=== PATIENT | male | born 1950 | race Caucasian/White ===

== ENCOUNTER 2016-09-21 14:09 | Inpatient (IN) | payer MEDICARE, MEDICAID ==
--- NOTE | 2016-09-21 14:40 | ED Physician Chart ---
Chief Complaint/HPI - Patient Information Date Seen:: 09/21/16 Time Seen:: 14:23 Chief Complaint:: AGITATED History of Present Illness:: THIS IS A 66 YO MALE CORRECTION PATIENT WITH SOME DIFFICULTY WITH HIS BEHAVIOR , STRIKING OUT AT THE STAFF. HE IS HERE FOR EVALUATION AND TREATMENT OF HIS PSYCHOSIS. HE IS A STROKE PATIENT WITH LEFT UPPER EXTREMITY SPASTIC PARALYSIS WITH DIFFICULTY WITH SPEECH AND THOUGH PROCESS. HE IS A DNR WITH DEMENTIA. Allergies:: Allergies Allergy/AdvReac Type Severity Reaction Status Date / Time ibuprofen Allergy Verified 09/21/16 14:19 Penicillins [PCN] Allergy Verified 09/21/16 14:18 Vitals:: Vital Signs - 8 hr 09/21/16 14:19 Temp 98.8 F HR 85 RR 16 BP 116/75 O2 Sat % 96 Review:: Nurse's Note Reviewed Review of Systems - Review of Systems General/Constitutional: No fever, No chills, No weight loss, No weakness, No diaphoresis, No edema, No loss of appetite, Other (THIS PATIENT IS UNABLE TO GIVE A REVIEW OF SYSTEMS.) Skin: No skin lesions, No rash, No bruising Head: No headache, No light-headedness Eyes: No loss of vision, No pain, No diplopia ENT: No earache, No nasal drainage, No sore throat, No tinnitus Neck: No neck pain, No swelling, No thyromegaly, No stiffness, No mass noted Cardio Vascular: No chest pain, No palpitations, No PND, No orthopnea, No edema Pulmonary: No SOB, No cough, No sputum, No wheezing GI: No nausea, No vomiting, No diarrhea, No pain, No melena, No hematochezia, No constipation, No hematemesis G/U: No dysuria, No frequency, No hematuria Musculoskeletal: No bone or joint pain, No back pain, No muscle pain Endocrine: No polyuria, No polydipsia Psychiatric: No prior psych history, No depression, No anxiety, No suicidal ideation Hematopoietic: No bruising, No lymphadenopathy Allergic/Immuno: No urticaria, No angioedema Neurological: No syncope, No focal symptoms, No weakness, No paresthesia, No headache, No seizure, No dizziness, No confusion, No vertigo Past Medical History - Past Medical History Obtainable: Yes Past Medical History: CVA/TIA, PUD/GERD Family History: None Social History: Non Smoker, No Alcohol, No Drug Use, Care Facility Surgical History: None Psychiatricy History: Dementia Medication: Reviewed Family Medical History - Family Member Mother History Unknown: Yes Physical Exam - Physical Examination General/Constitutional: Awake (LEFT UPPER EXTREMITY SPASTIC PARALYSIS, WEAKNESS OF THE LOWER EXTREMITIES.), Well-developed, well-nourished, Alert, No distress, GCS 15 (HE ALSO HAD DIFFICULTY THINKING AND SPEAKING.), Non-toxic appearing, Ambulatory Head: Atraumatic Eyes: Lids, conjuctiva normal, PERRL, EOMI Skin: Nl inspection, No rash, No skin lesions, No ecchymosis, Well hydrated, No lymphadenopathy ENMT: External ears, nose nl, Nasal exam nl, Lips, teeth, gums nl Neck: Nontender, Full ROM w/o pain, No JVD, No nuchal rigidity, No bruit, No mass, No stridor Respiratory: Nl effort/Exclusion, Clear to Auscultation, No Wheeze/Rhonchi/Rales Cardio Vascular: RRR, No murmur, gallop, rubs, NL S1 S2 GI: No tenderness/rebounding/guarding, No organomegaly, No hernia, Normal BS's, Nondistended, No mass/bruits, No McBurney tenderness : No CVA tenderness Extremities: No tenderness or effusion, Full ROM, normal strength in all extremities, No edema, Normal digits & nails Neuro/Psych: Alert/oriented, DTR's symmetric, Normal sensory exam, Normal motor strength, Normal gait Other Neuro/Psych comments:: THERE IS LEFT UPPER EXTREMITY SPASTIC PARALYSIS AND RIGHT SIDED WEAKNESS. HE IS NOT ORIENTED TO PLACE AND SITUATION WITH POOR THINKING ABILITY. Misc: normal gait, Normal back, No paraspinal tenderness Labs/Radiology/EKG Results - EKG Interpretations EKG Time:: 14:29 Rate & Rhythm: 85 SINUS Cory: RIGHT Assessment - Assessment General Assessment: PSYCHOSIS ED Septic Shock - . Is Septic Shock (SBP<90, OR Lactate>4 mmol\L) present?: No - <6hrs of presentation: Vital Signs: Vital Signs - 8 hr 09/21/16 14:19 Temp 98.8 F HR 85 RR 16 BP 116/75 O2 Sat % 96 Reassessment (Disposition) - Reassessment Reassessment Condition:: Unchanged - Diagnosis Diagnosis:: AGITATION - Patient Disposition Discharge/Transfer:: Acute Care w/in this hosp Admitting Medical Physician:: Andrade Verma Admitting Psych Physician:: Tressa Norris Condition at Disposition:: Unchanged
[2016-09-21 14:46] LABS: % BASOPHILS 0.2 % (0.0-2.0); % EOSINOPHILS 1.5 % (0.0-5.0); % LYMPHOCYTES 34.9 % (20.0-50.0); % MONOCYTES 9.4 % (2.0-10.0); HEMATOCRIT 37.6 % (39.0-49.0); HEMOGLOBIN 13.1 gm/dL (13.2-17.3); MEAN CELL VOLUME 96.7 fl (80-99); MEAN CORPUSCULAR HEMOGLOBIN 33.8 pg (26.0-30.0); MEAN CORPUSCULAR HGB CONC 34.9 pg (28.0-36.0); MEAN PLATELET VOLUME 8.8 fl; NEUTROPHILE ABSOLUTE 4.8 Th/cmm (1.8-8.0); PLATELET COUNT 234 Th/cmm (150-400); RED BLOOD COUNT 3.88 Mil/cmm (4.30-5.70); RED CELL DISTRIBUTION WIDTH 14.5 % (11.5-20.0); WHITE BLOOD COUNT 8.8 Th/cmm (4.8-10.8)
--- NOTE | 2016-09-21 14:47 | Diagnostic Imaging Report ---
CHEST X-RAY: AP view INDICATION: Cough COMPARISON: None FINDINGS: Skinfolds are seen along the right hemithorax. Left basal subsegmental atelectasis versus scarring is noted. No focal consolidation or effusions. Heart size is normal. Degenerative changes of the spine are noted. IMPRESSION: Left basal subsegmental atelectasis versus scarring. No focal consolidation identified.
[2016-09-21 14:49] LABS: INR 1.02 (0.5-1.4); PROTHROMBIN TIME (TEST) 10.6 SECONDS (9.5-11.5)
[2016-09-21 14:53] LABS: CHOLESTEROL 152 mg/dL (<200); TRIGLYCERIDES 97 mg/dL (<150)
[2016-09-21 14:55] LABS: ALB/GLOB RATIO 1.2 (1.0-1.8); ALKALINE PHOSPHATASE 58 U/L (34-104); ANION GAP 9.1 (7.0-16.0); BILIRUBIN,TOTAL 0.5 mg/dL (0.3-1.0); BUN - UREA NITROGEN 20 mg/dL (7-25); BUN/CREATININE RATIO 22.2; CALCIUM SERUM 9.5 mg/dL (8.6-10.3); CARBON DIOXIDE 26.1 mEq/L (21.0-31.0); CHLORIDE 99 mEq/L (98-107); CREATININE - SERUM 0.9 mg/dL (0.7-1.3); GLUCOSE 120 mg/dL (70-105); POTASSIUM SERUM 4.2 mEq/L (3.5-5.1); SGOT 15 U/L (13-39); SGPT/ALT 15 U/L (7-52); SODIUM SERUM 130 mEq/L (136-145)
[2016-09-21 17:15] VITALS: BP 122/72
[2016-09-21 17:32] LABS: URINE BILIRUBIN NEGATIVE (NEGATIVE); URINE BLOOD TRACE (NEGATIVE); URINE COLOR YELLOW; URINE GLUCOSE (UA) NEGATIVE (NEGATIVE); URINE KETONE TRACE mg/dL (NEGATIVE); URINE PROTEIN NEGATIVE (NEGATIVE)
[2016-09-21 17:33] LABS: URINE BACTERIA OCCASIONAL /hpf (NONE SEEN); URINE EPITHELIAL CELLS OCCASIONAL /lpf (FEW); URINE WBC 0-2 /hpf (0-5)
[2016-09-21] MEDS ORDERED: Non-Formulary Item 1 EA (Acetaminophen [Pain Reliever] 1 TAB) PO PRN (18:36)
--- NOTE | 2016-09-21 21:53 | Psychosocial Evaluation ---
DATE OF SERVICE: IDENTIFYING DATA: The patient is a 66-year-old male, resident of a [facility].Information obtained by directly interviewing the patient as well as reviewing the admission papers. JUSTIFICATION FOR HOSPITALIZATION: The patient is admitted here on a voluntary basis in view of his agitated behavior. HISTORY OF PRESENT ILLNESS: Chart is reviewed. Staff was spoken to. The patient's has been spoken to who happened to be there by the bedside. The patient has been diagnosed with fixed dementia a couple of years ago and has been having difficult time. The patient's somehow was able to secure some funding for the patient, the patient has been placed at [facility]. The patient has reported to have been refusing to comply with the medications. The patient has been spitting the medications out when it was administered and also reported to have been trying to grab the staff. The patient has been very aggressive. The patient, on that basis, has been referred over here for stabilization. The patient's has been a good historian and has been mentioning that she has been struggling with the patient for the past couple of years. The patient's sleep and appetite prior to the hospitalization are reported to be poor. PAST PSYCHIATRIC HISTORY: None. MEDICAL HISTORY: As mentioned earlier, the patient has been diagnosed with fixed dementia and the patient also has a history of CVA affecting the left side and the patient also has esophageal reflux disease. The patient is requested to have physical examination done by Dr. Verma. SUBSTANCE ABUSE HISTORY: None. SOCIAL HISTORY: The patient has been for over 42 years, the patient has 2 children, one lives in [place], he is a , the other one in [place] and the patient used to be senior windows systems administrator and the patient's is supportive. PHYSICAL OR SEXUAL ABUSE HISTORY: None. LEGAL PROBLEMS: None at this time. STRENGTH AND ASSETS: The patient is motivated. MENTAL STATUS EXAMINATION: The patient is a 66-year-old well-built with the left-sided hemiplegia. Coping skills are noted to be very poor. Speech is noted to be incoherent. The patient has been mumbling, but the patient is not able to articulate. Insight and judgment are noted to be very much impaired. Impulse control is noted to be poor. The patient is reported to have been very aggressive. The patient's behavior is a danger to others. The patient's short and long-term are noted to be very much impaired. DIAGNOSTIC IMPRESSION: AXIS I: Dementia and behavioral changes, secondary trait, particularly the fixed disease. AXIS II: None. AXIS III: As per Dr. Verma. IMMEDIATE TREATMENT PLAN: The patient is going to be continued on the Depakote and the patient is going to be looked into a low dose of the Seroquel. Estimated length of stay, 5-7 days. DISCHARGE CRITERIA: When he no longer a threat to self or others and be able to cope up with the stress. [facility]# [id number] MTDD
[2016-09-22] MEDS: Pantoprazole 40 mg EC Tab PO SCH (06:42)
[2016-09-22] MEDS ORDERED: Non-Formulary Item 1 EA (Melatonin [Melatonin] 3 MG) PO SCH (21:00)
--- NOTE | 2016-09-22 21:45 | Admit Criteria Form ---
Admit Criteria Forms - Admit Criteria Diagnosis: PSYCHIATRIC DISORDERS (Place 'X' for any and all applicable criteria): Ongoing inpatient care may be needed for 1 or more of the following(1)(2)(3)(4)( 6)(7)(8): [ ]I. Danger to self or others not manageable at lower level of care. [ ]II. Grave disability (eg, inability to perform self care necessary at lower level of care) [X ]III. Agitation or inappropriate behavior interfering with care for primary condition (eg, attempting to discontinue lines or drains prematurely, unable to cooperate with respiratory care) [ ]IV. Severe disability or disorder indicated by ALL of the following: [ ]a) Severe behavioral health disorder-related symptoms or condition indicated by 1 or more of the following: [ ]i) Severe problem with cognition, memory, judgment, or impulse control [ ]ii) Severe clinical manifestations (eg, hallucinations, delusions, other acute psychotic symptoms, kristina, extreme agitation or anxiety) [ ]b) Patient management at lower level of care is not feasible until acute intervention or modification is initiated. Extended stay beyond goal length of stay for the primary condition may be needed until ALLof the following are present(1)(2)(3)(4)(722)(23): [ ]a) Danger to self or others is absent or manageable at lower level of care [ ]b) Behavior crisis management, including physical or chemical restraints, is required and is not available at a lower level of care. [ ]c) Behavioral symptoms (e.g., agitation, somnolence, inappropriate behavior) are present, and are not manageable at a lower level of care. [ ]d) Patient cannot understand follow-up treatment and crisis plan. [ ]e) Provider and supports are sufficiently available at lower level of care. [ ]f) Patient can participate (e.g., verify absence of plan for harm) and is in needed of monitoring. The original [facility] content created by [facility] has been revised. The portions of the content which have been revised are identified through the use of italic text or in bold, and [facility] [employer] has neither reviewed nor approved the modified material. All other unmodified content is copyright [facility]. Please see references footnoted in the original [facility] edition 2017 Admit Criteria Met?: Yes
--- NOTE | 2016-09-22 22:04 | Progress Notes ---
DATE: 09/22/2016 PSYCHIATRIC PROGRESS NOTE TIME PATIENT SEEN: 8:15 a.m. SUBJECTIVE: Staff was spoken to. His chart is reviewed. The patient has been irritable and angry. Insight and judgment are noted to be still impaired. Impulse control seems to be limited. The patient has no insight into his illness. Coping skills are noted to be very poor. The patient at this time has been continued with the current medications, low dose of Seroquel is going to be used to contain his agitated behavior and patient is going to be closely monitored. Once stabilized, the patient is going to be discharged back to the ____. At this time is not ready to be discharged to a lower level of care. JOB# [id number]
[2016-09-23] MEDS: Pantoprazole 40 mg EC Tab PO SCH (06:34)
--- NOTE | 2016-09-24 00:24 | Consultation ---
DATE OF CONSULTATION: 09/21/2016 This is a patient of mine. PAST MEDICAL HISTORY: Significant for CVA with left hemiplegia, coronary artery disease, arthritis, osteoporosis, COPD, peptic ulcer disease, gastritis and GERD. SOCIAL HISTORY: Prior history of smoking. No history of drug or alcohol abuse. FAMILY HISTORY: Not available. REVIEW OF SYSTEMS: The patient is very confused, psychotic, has a history of recurrent falls. PHYSICAL EXAMINATION: GENERAL: Average male in no obvious respiratory distress. VITAL SIGNS: Include a blood pressure 110/70, heart rate 88, respiratory rate of 18. SKIN: Showed no obvious cellulitis. HEENT: Normal conjunctivae. NECK: Supple. LUNGS: Shows occasional crepitation, no bronchial breathing. HEART: First present. ABDOMEN: Soft, bowel sounds appeared good. EXTREMITIES: Show left hemiplegia with contracture deformities. NEUROLOGIC: The patient has left hemiplegia. LABORATORY DATA: Reviewed. ADMITTING MEDICAL DIAGNOSES: Include cerebrovascular accident with left hemiplegia, chronic obstructive pulmonary disease, arthritis, osteoporosis, peptic ulcer disease, coronary artery disease and psychosis. TREATMENT PLAN: As per LOW. PROGNOSIS: Fair to guarded. JOB# [id number]
--- NOTE | 2016-09-24 00:39 | Progress Notes ---
DATE: 09/23/2016 PSYCHIATRIC PROGRESS NOTE TIME PATIENT SEEN: 7:45 a.m. SUBJECTIVE: Staff was spoken to. The patient is interviewed. Mood is noted to be irritable. Affect is constricted. The patient is still having difficult time to cope with the stress. No side effects to the medications are noted at this time. The patient has been very aggressive and staff are trying to reach him and then ____. The patient is not able to articulate much. The patient is provided with supportive therapy, encouraged to participate in the treatment. The patient is not able to get out of the bed and has been in bed most of the time. ASSESSMENT: The patient is still psychotic and impulsive. PLAN: To continue the patient with supportive therapy and follow. JOB# [id number]
[2016-09-24] MEDS: Pantoprazole 40 mg EC Tab PO SCH (06:31)
[2016-09-25] MEDS: Pantoprazole 40 mg EC Tab PO SCH (06:33)
[2016-09-26] MEDS: Pantoprazole 40 mg EC Tab PO SCH (06:43)
--- NOTE | 2016-10-16 12:59 | Progress Notes ---
DATE: 09/24/2016 PSYCHIATRIC PROGRESS NOTE TIME PATIENT SEEN: 9:30 a.m. SUBJECTIVE: Staff was spoken to. The patient is interviewed. Mood is noted to be irritable. Affect is constricted. The patient has been spitting the medications out. The patient's coping skills are noted to be very poor. Insight and judgment are also noted to be very much impaired. The patient is on a low dose of the Seroquel and has been encouraged to comply with the treatment. ASSESSMENT: The patient is still grossly psychotic and demented and impulsive. PLAN: To continue the patient with supportive therapy and followup. JOB# [id number]
== END 2016-09-26 18:05 | DRG 884 ==
LOC: ER 14:09 → GERO 16:18
PROVIDERS: ADMIT Psychiatry & Neurology Psychiatry; ATTEND Psychiatry & Neurology Psychiatry
DX: F03.91 Unspecified dementia, unspecified severity, with behavioral disturbance (principal); I69.354 Hemiplegia and hemiparesis following cerebral infarction affecting left non-dominant side; G83.9 Paralytic syndrome, unspecified; F29 Unspecified psychosis not due to a substance or known physiological condition; K21.9 Gastro-esophageal reflux disease without esophagitis; Z66 Do not resuscitate; J44.9 Chronic obstructive pulmonary disease, unspecified; M19.90 Unspecified osteoarthritis, unspecified site; M81.0 Age-related osteoporosis without current pathological fracture; I25.10 Atherosclerotic heart disease of native coronary artery without angina pectoris; Z88.6 Allergy status to analgesic agent; Z88.0 Allergy status to penicillin; Z87.11 Personal history of peptic ulcer disease
CPT/HCPCS: 36415-UA; 71010-TC; 80053-TC; 80061-TC; 80164-TC; 81001-TC; 84443-TC; 84484-TC; 85025-TC; 85610-TC; 85730-TC; 86592-TC; 93005; Z7610